=== PATIENT | male | born 1995 | race African-American/Black ===

== ENCOUNTER 2019-07-05 01:38 | Emergency (ER) | payer OTHER ==
[2019-07-05] MEDS ORDERED: diphenhydrAMINE INJ 50 MG/ML VIAL IVP STA (02:18)
[2019-07-05] MEDS ORDERED: FAMOTIDINE 20 MG/2 ML VIAL IVP STA (02:18)
[2019-07-05] MEDS ORDERED: methylPREDNISolone SUCCINATE 125 MG/2 ML VIAL IVP STA (02:18)
--- NOTE | 2019-07-05 02:19 | ED Physician Documentation ---
History of Present Illness - Stated complaint Stated Complaint: LIP SWELLING - Chief complaint Chief Complaint: Allergic Rx - History obtained from History obtained from: Patient - History of Present Illness Timing: Today - Additonal information Additional information: This is a 24-year-old who awakened approximately an hour and a half prior to presentation with his bottom lip swelling. He gone to bed about 830. He does not have any difficulty breathing or shortness of breath does not have any difficulty swallowing. He ate seafood 2 nights ago and his mom is allergic to seafood but he is never had a reaction like this in the past. Denies any nausea or vomiting. Review of Systems Constitutional: denies: Fever Throat: denies: Sore throat, Swollen tonsils Respiratory: denies: Dyspnea, Cough GI: denies: Nausea, Vomiting Skin: denies: Rash PD PAST MEDICAL HISTORY - Present Medications Home Medications: Ambulatory Orders Medication Instructions Recorded Confirmed predniSONE [Prednisone] 60 mg PO DAILY #15 tablet 07/05/19 - Allergies Allergies/Adverse Reactions: Allergies Allergy/AdvReac Type Severity Reaction Status Date / Time No Known Drug Allergies Allergy Verified 07/05/19 01:53 PD ED PE NORMAL - Vitals Vital signs reviewed: Yes - General General: Alert and oriented X 3, No acute distress, Well developed/nourished - HEENT HEENT: Atraumatic, PERRL, Moist mucous membranes, Pharynx benign, Other (The lower and bottom lip are visibly edematous. No edema of the tongue or soft palate.) - Neck Neck: No adenopathy, Thyroid normal - Cardiac Cardiac: RRR, No murmur - Respiratory Respiratory: No respiratory distress, Clear bilaterally - Derm Derm: Normal color, Warm and dry, No rash Results - Vitals Vitals: Vital Signs - 24 hr 07/05/19 07/05/19 07/05/19 01:50 03:27 05:26 Temperature 36.3 C L Heart Rate 75 72 67 Respiratory 16 15 Rate Blood Pressure 148/82 H 120/71 104/66 O2 Saturation 96 98 96 Oxygen O2 Source Room air PD MEDICAL DECISION MAKING - ED course Complexity details: re-evaluated patient, d/w patient ED course: IV was established and the patient was given Benadryl 50 mg Solu-Medrol 125 mg and Pepcid 20 mg. He was monitored here in the emergency department with frequent checks and the lip edema was not progressing but there was also not significant regression after a couple of hours. Organ to monitor him for another couple of hours and decide from there best treatment plan. 0636: Patient was monitored here for over 4 hours and had no further swelling. Lungs were clear and he was not in any respiratory distress. Plan to discharge home on 5 days of oral prednisone. He is instructed to use Benadryl today through the day every 6 hours. We discussed that there could be a genetic component to what happened to him rather than it being an actual allergic reaction. [place]. Departure - Departure Disposition: Home, Self Care Clinical Impression: Angioedema of lips Qualifiers: Encounter type: initial encounter Qualified Code(s): T78.3XXA - Angioneurotic edema, initial encounter Condition: Good Instructions: ED Angioedema Follow-Up: [facility] [Provider Group] Prescriptions: predniSONE [Prednisone] 60 mg PO DAILY #15 tablet Comments: Take Benadryl 50 mg every 6 hours of the day today if possible. Take prednisone as prescribed for 5 days. [place] whether there may be a genetic component to what happened to you tonight. Return to the emergency department if you have increasing swelling, difficulty speaking swallowing or breathing or other problems arise.
[2019-07-05 06:48] VITALS: BP 112/76
== END 2019-07-05 07:00 | disposition home or self-care (01) ==
LOC: ED 01:38
DX: T78.3XXA Angioneurotic edema, initial encounter (principal)
CPT/HCPCS: 96374; 96375; 99283; 99284; J1200

== ENCOUNTER 2019-08-04 19:35 | Emergency (ER) | payer OTHER ==
[2019-08-04] MEDS ORDERED: diphenhydrAMINE 25 MG CAPSULE PO STA (20:13)
[2019-08-04] MEDS ORDERED: predniSONE 20 MG TABLET PO STA (20:13)
--- NOTE | 2019-08-04 20:53 | ED Physician Documentation ---
History of Present Illness - Stated complaint Stated Complaint: LIP SWELLING, TROUBLE SWALLOWING - Chief complaint Chief Complaint: Allergic Rx - History obtained from History obtained from: Patient - History of Present Illness Timing: Today, How many hours ago (1.5) Pain level now: 0 - Additonal information Additional information: 24-year-old male with swelling to the upper lip started after eating chicken today. Has not taken anything prior to arrival. This is happened no before. Has not had allergy testing. No medications at home. Nothing makes it better or worse. No difficulty breathing or swallowing. Review of Systems Constitutional: denies: Fever, Chills Throat: denies: Sore throat Respiratory: denies: Dyspnea, Cough GI: denies: Vomiting Skin: denies: Rash PD PAST MEDICAL HISTORY - Past Medical History Past Medical History: No - Past Surgical History Past Surgical History: No - Present Medications Home Medications: Ambulatory Orders Medication Instructions Recorded Confirmed predniSONE [Prednisone] 60 mg PO DAILY #15 tablet 07/05/19 predniSONE [Prednisone] 40 mg PO DAILY #6 tablet 08/04/19 - Allergies Allergies/Adverse Reactions: Allergies Allergy/AdvReac Type Severity Reaction Status Date / Time No Known Drug Allergies Allergy Verified 08/04/19 19:43 - Social History Does the pt smoke?: No Smoking Status: Never smoker Does the pt drink ETOH?: No - Immunizations Immunizations are current?: Yes PD ED PE NORMAL - Vitals Vital signs reviewed: Yes - General General: Alert and oriented X 3, No acute distress - HEENT HEENT: Moist mucous membranes, Other (Mild swelling to the upper lip. Normal oropharyngeal exam. No stridor.) - Neck Neck: Supple, no meningeal sign - Cardiac Cardiac: RRR - Respiratory Respiratory: No respiratory distress, Clear bilaterally - Derm Derm: Warm and dry, No rash - Neuro Neuro: Alert and oriented X 3 Results - Vitals Vitals: Oxygen O2 Source Room air PD MEDICAL DECISION MAKING - ED course Complexity details: considered differential, d/w patient ED course: 24-year-old male with mild swelling to the upper lip. Appears to be an allergic reaction. Unclear what he is allergic to. Will place on steroids here and for home. Patient improved while being observed in the emergency department. Patient counseled regarding signs and symptoms for which I believe and urgent re-evaluation would be necessary. Patient with good understanding of and agreement to plan and is comfortable going home at this time This document was made in part using voice recognition software. While efforts are made to proofread this document, sound alike and grammatical errors may occur. Departure - Departure Disposition: 01 Home, Self Care Clinical Impression: Angioedema Qualifiers: Encounter type: initial encounter Qualified Code(s): T78.3XXA - Angioneurotic edema, initial encounter Condition: Good Instructions: ED Angioedema Follow-Up: your,doctor in 1 week [Other] Prescriptions: predniSONE [Prednisone] 40 mg PO DAILY #6 tablet Comments: Take all steroids until gone. Return if you worsen. Follow-up with your doctor for further care. Your doctor may want to have you visit an vpk teacher for allergy testing. Discharge Date/Time: 08/04/19 21:03
[2019-08-04 21:03] VITALS: BP 133/78
== END 2019-08-04 21:03 | disposition home or self-care (01) ==
LOC: ED 19:35
DX: T78.3XXA Angioneurotic edema, initial encounter (principal)
CPT/HCPCS: 99282; 99283; A9270; J7512

== ENCOUNTER 2020-06-14 18:31 | Outpatient (CLI) | payer OTHER | END 2020-06-14 18:32 | disposition critical access hospital (66) | LOC: EMS 18:31 | PROVIDERS: ATTEND Surgery | DX: R10.31 Right lower quadrant pain (principal); R11.0 Nausea | CPT/HCPCS: A0425; A0427 ==

== ENCOUNTER 2020-06-14 18:52 | Emergency (ER) | payer OTHER ==
[2020-06-14] MEDS ORDERED: KETOROLAC 30 MG/ML VIAL IVP STA (19:02)
[2020-06-14] MEDS ORDERED: LIDOCAINE-MPF 2% 7.5 ML in SODIUM CHLORIDE 0.9% 50 ML IV STA (19:04)
[2020-06-14] MEDS ORDERED: SODIUM CHLORIDE 0.9% 1,000 ML IV STA (19:04)
--- NOTE | 2020-06-14 19:06 | ED Physician Documentation ---
PD HPI ABD PAIN - Stated complaint Stated Complaint: RT FLANK ABD PAIN - Chief complaint Chief Complaint: Abd Pain - History obtained from History obtained from: Patient - History of Present Illness Timing - onset: How many hours ago (1) Timing - duration: Hours (1) Timing - details: Abrupt onset Pain level max: 10 Pain level now: 10 Quality: Pain Location: RLQ Radiation: Right flank Improved by: Meds (fentanyl with EMS) Worsened by: Other (nothing) Associated symptoms: Nausea. 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 Nothing makes it better or worse. Does have a history of kidney stones, last was approximately 7 years ago. Review of Systems Ten Systems: 10 systems reviewed and negative Constitutional: denies: Fever, Chills Respiratory: denies: Cough GI: reports: Nausea. denies: Vomiting, Diarrhea : denies: Dysuria, Frequency, Hesitancy Skin: denies: Rash Musculoskeletal: denies: Neck pain, Back pain Neurologic: denies: Headache PD PAST MEDICAL HISTORY - Past Medical History Past Medical History: Yes : Kidney stones - Past Surgical History Past Surgical History: No - Present Medications Home Medications: Ambulatory Orders Medication Instructions Recorded Confirmed predniSONE [Prednisone] 60 mg PO DAILY #15 tablet 07/05/19 predniSONE [Prednisone] 40 mg PO DAILY #6 tablet 08/04/19 HYDROcod/ACETAM 5/325 [[facility] 5/325] 1 - 2 ea PO Q6H PRN #10 tablet 06/14/20 Ibuprofen [Motrin] 800 mg PO Q8H PRN #30 tablet 06/14/20 Ondansetron Odt [Zofran] 4 mg TL Q6H PRN #10 tablet 06/14/20 - Allergies Allergies/Adverse Reactions: Allergies Allergy/AdvReac Type Severity Reaction Status Date / Time No Known Drug Allergies Allergy Verified 06/14/20 18:57 - Social History Does the pt smoke?: No Smoking Status: Never smoker Does the pt drink ETOH?: No - Immunizations Immunizations are current?: Yes PD ED PE NORMAL - Vitals Vital signs reviewed: Yes - General General: Alert and oriented X 3, Well developed/nourished, Other (appears in pain) - HEENT HEENT: Moist mucous membranes - Neck Neck: Supple, no meningeal sign - Cardiac Cardiac: RRR - Respiratory Respiratory: No respiratory distress, Clear bilaterally - Abdomen Abdomen: Soft, Non tender, Non distended - Derm Derm: Warm and dry - Extremities Extremities: No calf tenderness / cord - Neuro Neuro: Alert and oriented X 3 Results - Vitals Vitals: Vital Signs - 24 hr 06/14/20 06/14/20 06/14/20 18:56 19:58 21:41 Temperature 36.9 C Heart Rate 102 H 75 99 Respiratory 12 18 18 Rate Blood Pressure 150/77 H 150/79 H 131/79 H O2 Saturation 97 100 98 Oxygen O2 Source Room air - Labs Labs: Laboratory Tests 06/14/20 06/14/20 06/14/20 19:10 19:10 21:23 WBC 7.8 RBC 5.35 Hgb 14.3 Hct 43.2 MCV 80.7 MCH 26.7 L MCHC 33.1 RDW 11.8 L Plt Count 338 MPV 10.1 Neut # (Auto) 2.9 Lymph # (Auto) 3.8 H [place] # (Auto) 0.8 Eos # (Auto) 0.2 Baso # (Auto) 0.0 Absolute Nucleated RBC 0.00 Nucleated RBC % 0.0 Sodium 135 Potassium 3.2 L Chloride 99 L Carbon Dioxide 27 Anion Gap 9.0 BUN 10 Creatinine 1.1 Estimated GFR (MDRD) 101 Glucose 113 H Calcium 8.8 Total Bilirubin 0.4 AST 22 ALT 25 Alkaline Phosphatase 92 Total Protein 7.6 Albumin 4.5 Globulin 3.1 Albumin/Globulin Ratio 1.5 Lipase 32 Urine Color YELLOW Urine Clarity HAZY Urine pH 6.5 Ur Specific [place] 1.025 Urine Protein NEGATIVE Urine Glucose (UA) NEGATIVE Urine Ketones NEGATIVE Urine Occult Blood LARGE H Urine Nitrite NEGATIVE Urine Bilirubin NEGATIVE Urine Urobilinogen 0.2 (NORMAL) Ur Leukocyte Esterase NEGATIVE Urine RBC 11-25 H Urine WBC 0-3 Ur Squamous Epith Cells NONE SEEN Urine Bacteria None Seen Ur Microscopic Review INDICATED Urine Culture Comments NOT INDICATED - Rads (name of study) CT abd/pelvis Radiology: Prelim report reviewed, EMP read contemporaneously PD MEDICAL DECISION MAKING - ED course Complexity details: reviewed results, re-evaluated patient, considered differential, d/w patient ED course: Patient with a right UVJ stone, it is in the bladder on CT scan. Pain resolved in the emergency department. Patient is well-appearing, nontoxic. Afebrile. Given Toradol, IV lidocaine and Dilaudid. No evidence of UTI. No fevers. No evidence of sepsis. Will prescribe pain meds and nausea meds for home. Patient counseled regarding signs and symptoms for which I believe and urgent re-yamilex luation would be necessary. Patient with good understanding of and agreement to plan and is comfortable going home at this time This document was made in part using voice recognition software. While efforts are made to proofread this document, sound alike and grammatical errors may occur. CT abd/pelvis: 1. Obstructing urinary stone in the bladder at the UVJ with associated mild right hydroureteronephrosis. 2. Additional small bilateral nonobstructing stones as described. Departure - Departure Disposition: Home, Self Care Clinical Impression: Renal stone Condition: Good Instructions: ED Stone Renal Passed Follow-Up: your,doctor in 1 week [Other] Prescriptions: Ibuprofen [Motrin] 800 mg PO Q8H PRN #30 tablet PRN Reason: PAIN &/OR FEVER HYDROcod/ACETAM 5/325 [[facility] 5/325] 1 - 2 ea PO Q6H PRN #10 tablet PRN Reason: Pain Ondansetron Odt [Zofran] 4 mg TL Q6H PRN #10 tablet PRN Reason: Nausea / Vomiting Comments: You have a 4 mm right kidney stone tonight, this appears to be passing into your bladder during your CAT scan. Return if you worsen. Drink plenty of fluids and stay well-hydrated.
[2020-06-14 19:20] LABS: BASOPHILS % (AUTO) 0.5 %; EOSINOPHILS # (AUTO) 0.2 10^3/uL (0.0-0.7); EOSINOPHILS % (AUTO) 2.7 %; HGB - HEMOGLOBIN 14.3 g/dL (14.0-18.0); LYMPHOCYTES # (AUTO) 3.8 10^3/uL (1.5-3.5); LYMPHOCYTES % (AUTO) 49.4 %; MEAN CORPUSCULAR HEMOGLOBIN 26.7 pg (27.0-31.0); MEAN CORPUSCULAR HGB CONC 33.1 g/dL (32.0-36.0); MEAN CORPUSCULAR VOLUME 80.7 fL (80.0-94.0); MEAN PLATELET VOLUME 10.1 fL (7.4-11.4); MONOCYTES # (AUTO) 0.8 10^3/uL (0.0-1.0); MONOCYTES % (AUTO) 9.7 %; NEUTROPHILS # (AUTO) 2.9 10^3/uL (1.5-6.6); NEUTROPHILS % (AUTO) 37.3 %; PLT - PLATELET COUNT 338 10^3/uL (130-450); RED BLOOD COUNT 5.35 10^6/uL (4.70-6.10); RED CELL DISTRIBUTION WIDTH 11.8 % (12.0-15.0); WHITE BLOOD COUNT 7.8 x10^3/uL (4.8-10.8)
[2020-06-14] MEDS ORDERED: LIDOCAINE-MPF 2% 5 ML VIAL ONE (19:23)
[2020-06-14 19:26] LABS: ALBUMIN 4.5 g/dL (3.2-5.5); ALBUMIN/GLOBULIN RATIO 1.5 (1.0-2.2); BILIRUBIN,TOTAL 0.4 mg/dL (0.2-1.0); CALCIUM 8.8 mg/dL (8.5-10.3); CREATININE 1.1 mg/dL (0.6-1.2); TOTAL PROTEIN 7.6 g/dL (6.7-8.2)
[2020-06-14] MEDS ORDERED: HYDROmorphone 1 MG/ML CARPUJECT IVP STA (19:44)
--- NOTE | 2020-06-14 19:47 | CT Report ---
PROCEDURE: Abdomen/Pelvis WO INDICATIONS: R flank pain, h/o renal stones. TECHNIQUE: Noncontrast 5 mm thick sections acquired from the diaphragms to the symphysis. 5 mm coronal and sagi ttal reformats were then performed. For radiation dose reduction, the following was used: automated exposure control, adjustment of mA and/or kV according to patient size. COMPARISON: None. FINDINGS: Image quality: Excellent. ABDOMEN: Lung bases: There is mild dependent atelectasis bilaterally. Heart size is normal. Solid organs: Noncontrast evaluation of the liver demonstrates no focal hepatic lesions. Gallbladder appears within normal limits without calcified gallstones. Spleen is normal in size. Pancreas is norm al in contours. No adrenal nodules. There is an obstructing stone measuring up to 4 mm in the urinary bladder at the ureterovesicular luis ction with associated mild right hydroureteronephrosis. There is associated mild perinephric and matty renal fat stranding. There are 3 additional small nonobstructing right renal stones, measuring up to 3 mm and 2 small nonobstructing left renal stones measuring up to 2 mm. No left hydronephrosis. Left ureter is nondistended. Peritoneum and bowel: Unenhanced bowel loops demonstrate normal wall thickness and caliber. The appe ndix is normal in appearance. No free fluid or air. Nodes and vessels: No retroperitoneal or mesenteric adenopathy by size criteria. Aorta and inferior vena cava are normal in caliber. Miscellaneous: No ventral hernias. PELVIS: Genitourinary: Bladder wall thickness is normal. Miscellaneous: No inguinal hernias or adenopathy. Bones: No suspicious bony lesions. No vertebral body compression fractures. IMPRESSION: 1. Obstructing urinary stone in the bladder at the UVJ with associated mild right hydroureteronephros is. 2. Additional small bilateral nonobstructing stones as described. Reviewed by: Ja Ramirez MD on 06/14/2020 7:46 PM PDT Approved by: Ja Ramirez MD on 06/14/2020 7:46 PM PDT Station ID: [id number]
[2020-06-14 21:31] LABS: BILIRUBIN,URINE NEGATIVE (NEGATIVE); CLARITY,URINE HAZY (CLEAR); GLUCOSE, URINE (UA) NEGATIVE (NEGATIVE); KETONES,URINE (UA) NEGATIVE (NEGATIVE); LEUKOCYTE ESTERASE, URINE NEGATIVE (NEGATIVE); NITRITE,URINE NEGATIVE (NEGATIVE); OCCULT BLOOD,URINE LARGE (NEGATIVE); PH,URINE 6.5 PH (5.0-7.5); PROTEIN,URINE NEGATIVE (NEGATIVE); UROBILINOGEN,URINE 0.2 (NORMAL) E.U./dL (NORMAL)
[2020-06-14 21:40] LABS: BACTERIA,URINE None Seen /HPF (None Seen); SQUAMOUS EPITHELIAL CELL,UR NONE SEEN (<= Few)
[2020-06-14 21:42] VITALS: BP 131/79
[2020-06-14] MEDS ORDERED: ONDANSETRON ODT 4 MG TABLET TL STA (21:59)
== END 2020-06-14 22:30 | disposition home or self-care (01) ==
LOC: EDUNIT# → ED 18:52
DX: N13.2 Hydronephrosis with renal and ureteral calculous obstruction (principal)
CPT/HCPCS: 36415; 74176; 80053; 81001; 83690; 85025; 96361; 96374; 96375; 99284; J1170; J7040; Q0162; 81003; 87086

== ENCOUNTER 2020-07-03 01:22 | Outpatient (CLI) | payer OTHER | END 2020-07-03 01:23 | disposition critical access hospital (66) | LOC: EMS 01:22 | PROVIDERS: ATTEND Surgery | DX: R55 Syncope and collapse (principal); R07.9 Chest pain, unspecified; R00.0 Tachycardia, unspecified | CPT/HCPCS: A0425; A0427 ==

== ENCOUNTER 2020-07-03 01:42 | Emergency (ER) | payer OTHER ==
[2020-07-03 02:11] LABS: BASOPHILS % (AUTO) 0.3 %; EOSINOPHILS % (AUTO) 0.7 %; LYMPHOCYTES # (AUTO) 1.9 10^3/uL (1.5-3.5); LYMPHOCYTES % (AUTO) 32.3 %; MEAN CORPUSCULAR HEMOGLOBIN 26.5 pg (27.0-31.0); MEAN CORPUSCULAR HGB CONC 32.3 g/dL (32.0-36.0); MONOCYTES # (AUTO) 0.4 10^3/uL (0.0-1.0); MONOCYTES % (AUTO) 7.2 %; NEUTROPHILS # (AUTO) 3.4 10^3/uL (1.5-6.6); NEUTROPHILS % (AUTO) 59.3 %; PLT - PLATELET COUNT 282 10^3/uL (130-450); RED BLOOD COUNT 5.28 10^6/uL (4.70-6.10); RED CELL DISTRIBUTION WIDTH 11.9 % (12.0-15.0); WHITE BLOOD COUNT 5.7 x10^3/uL (4.8-10.8)
[2020-07-03 02:25] LABS: ALBUMIN 4.5 g/dL (3.2-5.5); ALBUMIN/GLOBULIN RATIO 1.5 (1.0-2.2); BILIRUBIN,TOTAL 0.8 mg/dL (0.2-1.0); CALCIUM 9.4 mg/dL (8.5-10.3); CREATININE 1.1 mg/dL (0.6-1.2); TOTAL PROTEIN 7.6 g/dL (6.7-8.2)
--- NOTE | 2020-07-03 03:00 | ED Physician Documentation ---
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 No: Headache, Vision changes, Chest pain, Diaphoresis, Nausea / vomiting, Abdominal pain Contributing factors: None Injury occurred: None Recently seen: Not recently seen - Additional information Additional information: patient was at work, at rest sitting at a desk tonight when he had sudden onset rapid palpitations and lightheadedness. He says he had odd sensation in BUE which he can best describe as his arms feeling "light" (per patient). Review of Systems Cardiac: reports: Palpitations. denies: Chest pain / pressure, Pedal edema, Calf pain Respiratory: reports: Reviewed and negative GI: reports: Reviewed and negative Neurologic: denies: Generalized weakness, Focal weakness, Numbness, Syncope, Headache PD PAST MEDICAL HISTORY - Past Medical History Cardiovascular: None Respiratory: None Neuro: None Endocrine/Autoimmune: None GI: None : Kidney stones HEENT: None Psych: None Musculoskeletal: None Derm: None - Past Surgical History Past Surgical History: No - Present Medications Home Medications: Ambulatory Orders Medication Instructions Recorded Confirmed predniSONE [Prednisone] 60 mg PO DAILY #15 tablet 07/05/19 predniSONE [Prednisone] 40 mg PO DAILY #6 tablet 08/04/19 HYDROcod/ACETAM 5/325 [[place] 5/325] 1 - 2 ea PO Q6H PRN #10 tablet 06/14/20 Ibuprofen [Motrin] 800 mg PO Q8H PRN #30 tablet 06/14/20 Ondansetron Odt [Zofran] 4 mg TL Q6H PRN #10 tablet 06/14/20 - Allergies Allergies/Adverse Reactions: Allergies Allergy/AdvReac Type Severity Reaction Status Date / Time No Known Drug Allergies Allergy Verified 07/03/20 01:55 - Social History Does the pt smoke?: No Smoking Status: Never smoker Does the pt drink ETOH?: No Does the pt have substance abuse?: No - Immunizations Immunizations are current?: Yes PD ED PE NORMAL - Vitals Vital signs reviewed: Yes - General General: Alert and oriented X 3, No acute distress, Well developed/nourished - HEENT HEENT: Moist mucous membranes - Neck Neck: Supple, no meningeal sign - Cardiac Cardiac: RRR, No murmur, No gallop, No rub - Respiratory Respiratory: No respiratory distress, Clear bilaterally - Abdomen Abdomen: Soft, Non tender - Extremities Extremities: No edema Results - Vitals Vitals: Vital Signs - 24 hr 07/03/20 07/03/20 07/03/20 01:49 02:07 03:19 Temperature 36.9 C Heart Rate 88 90 88 Respiratory 16 20 18 Rate Blood Pressure 143/80 H 147/86 H 138/74 H O2 Saturation 97 98 97 07/03/20 03:40 Temperature Heart Rate 81 Respiratory 16 Rate Blood Pressure 135/78 H O2 Saturation 97 Oxygen O2 Source Room air - EKG (time done) No standard instances Rate: Rate (enter#) (88) Rhythm: NSR [place]: Normal Intervals: Normal NC QRS: Normal Ischemia: Normal ST segments Other comments: Other comments (rSR' V1, V2) - Labs Labs: Laboratory Tests 07/03/20 07/03/20 07/03/20 02:05 02:05 02:05 WBC 5.7 RBC 5.28 Hgb 14.0 Hct 43.3 MCV 82.0 MCH 26.5 L MCHC 32.3 RDW 11.9 L Plt Count 282 MPV 10.0 Neut # (Auto) 3.4 Lymph # (Auto) 1.9 [place] # (Auto) 0.4 Eos # (Auto) 0.0 Baso # (Auto) 0.0 Absolute Nucleated RBC 0.00 Nucleated RBC % 0.0 Sodium 137 Potassium 3.4 L Chloride 100 L Carbon Dioxide 26 Anion Gap 11.0 BUN 12 Creatinine 1.1 Estimated GFR (MDRD) 101 Glucose 93 Calcium 9.4 Total Bilirubin 0.8 AST 19 ALT 26 Alkaline Phosphatase 88 Troponin I High Sens 6.3 Total Protein 7.6 Albumin 4.5 Globulin 3.1 Albumin/Globulin Ratio 1.5 Lipase 26 PD MEDICAL DECISION MAKING - ED course Complexity details: reviewed results, re-evaluated patient, considered differential, d/w patient ED course: normal vital signs and NSR on monitor during ED stay. Unremarkable blood tests (minimally low potassium at 3.4) and nondiagnostic EKG. Departure - Departure Disposition: 01 Home, Self Care Clinical Impression: Near syncope Condition: Good Instructions: ED Near Syncope Unkn Follow-Up: CE[facility] Leon [Provider Group] - Within 3 Days Discharge Date/Time: 07/03/20 03:40
[2020-07-03 03:41] VITALS: BP 135/78
== END 2020-07-03 03:40 | disposition home or self-care (01) ==
LOC: EDUNIT# → ED 01:42
DX: R55 Syncope and collapse (principal)
CPT/HCPCS: 36415; 80053; 83690; 84484; 85025; 93005; 99284

== ENCOUNTER 2020-09-03 06:48 | Emergency (ER) | payer OTHER ==
[2020-09-03 07:27] LABS: BASOPHILS % (AUTO) 0.7 %; EOSINOPHILS # (AUTO) 0.1 10^3/uL (0.0-0.7); EOSINOPHILS % (AUTO) 1.4 %; HGB - HEMOGLOBIN 13.9 g/dL (14.0-18.0); LYMPHOCYTES # (AUTO) 1.5 10^3/uL (1.5-3.5); LYMPHOCYTES % (AUTO) 34.5 %; MEAN CORPUSCULAR HEMOGLOBIN 26.3 pg (27.0-31.0); MEAN CORPUSCULAR HGB CONC 32.3 g/dL (32.0-36.0); MEAN CORPUSCULAR VOLUME 81.3 fL (80.0-94.0); MONOCYTES # (AUTO) 0.4 10^3/uL (0.0-1.0); MONOCYTES % (AUTO) 7.9 %; NEUTROPHILS # (AUTO) 2.5 10^3/uL (1.5-6.6); NEUTROPHILS % (AUTO) 55.3 %; PLT - PLATELET COUNT 280 10^3/uL (130-450); RED BLOOD COUNT 5.29 10^6/uL (4.70-6.10); RED CELL DISTRIBUTION WIDTH 12.1 % (12.0-15.0); WHITE BLOOD COUNT 4.4 x10^3/uL (4.8-10.8)
[2020-09-03 07:31] LABS: CALCIUM 9.3 mg/dL (8.5-10.3); MAGNESIUM 2.2 mg/dL (1.7-2.8)
--- NOTE | 2020-09-03 08:21 | XRAY Report ---
PROCEDURE: Chest 1 View X-Ray INDICATIONS: chest pain, palpitations TECHNIQUE: One view of the chest was acquired. COMPARISON: None FINDINGS: Surgical changes and devices: None. Lungs and pleura: No pleural effusions or pneumothorax. Lungs are clear. Mediastinum: Mediastinal contours appear normal. Heart size is normal. Bones and chest wall: No suspicious bony lesions. Overlying soft tissues appear unremarkable. IMPRESSION: Normal for age, source of current symptoms is not seen. Reviewed by: Igor Blood MD on 09/03/2020 8:20 AM [facility] Approved by: Igor Blood MD on 09/03/2020 8:20 AM [facility] Station ID: [id number]
--- NOTE | 2020-09-03 09:24 | ED Physician Documentation ---
PD HPI CHEST PAIN - Stated complaint Stated Complaint: CHEST PX - Chief complaint Chief Complaint: Cardiac - History obtained from History obtained from: Patient - Additional information Additional information: 25-year-old male, with past medical history of gastroesophageal reflux presents with chest pain starting this morning sudden onset associated with palpitations, intermittent, aching, substernal nonradiating. No exacerbating or relieving features. Patient denies fever nausea abdominal pain back pain urinary symptoms shortness of breath or cough. No myalgias. Does endorse mild bifrontal nonradiating aching headache. Review of Systems Ten Systems: 10 systems reviewed and negative Constitutional: denies: Fever, Chills, Myalgias Cardiac: reports: Chest pain / pressure, Palpitations Respiratory: denies: Dyspnea, Cough GI: denies: Abdominal Pain, Nausea PD PAST MEDICAL HISTORY - Past Medical History Past Medical History: No Cardiovascular: None Respiratory: None Neuro: None Endocrine/Autoimmune: None GI: None : Kidney stones HEENT: None Psych: None Musculoskeletal: None Derm: None - Past Surgical History Past Surgical History: No - Present Medications Home Medications: Ambulatory Orders Medication Instructions Recorded Confirmed predniSONE [Prednisone] 60 mg PO DAILY #15 tablet 07/05/19 predniSONE [Prednisone] 40 mg PO DAILY #6 tablet 08/04/19 HYDROcod/ACETAM 5/325 [[place] 5/325] 1 - 2 ea PO Q6H PRN #10 tablet 06/14/20 Ibuprofen [Motrin] 800 mg PO Q8H PRN #30 tablet 06/14/20 Ondansetron Odt [Zofran] 4 mg TL Q6H PRN #10 tablet 06/14/20 - Allergies Allergies/Adverse Reactions: Allergies Allergy/AdvReac Type Severity Reaction Status Date / Time No Known Drug Allergies Allergy Verified 07/03/20 01:55 - Social History Does the pt smoke?: No Smoking Status: Never smoker Does the pt drink ETOH?: No Does the pt have substance abuse?: No - Immunizations Immunizations are current?: Yes PD ED PE NORMAL - Vitals Vital signs reviewed: Yes - General General: Alert and oriented X 3 - HEENT HEENT: Atraumatic, PERRL, EOMI - Neck Neck: Supple, no meningeal sign, No JVD - Cardiac Cardiac: RRR - Respiratory Respiratory: No respiratory distress, Clear bilaterally - Abdomen Abdomen: Non tender, Non distended - Male Male : Deferred - Rectal Rectal: Deferred - Back Back: No CVA TTP - Derm Derm: Normal color - Extremities Extremities: No deformity, No edema - Neuro Neuro: Alert and oriented X 3 - Psych Psych: Normal mood, Normal affect Results - Vitals Vitals: Vital Signs - 24 hr 09/03/20 09/03/20 06:54 08:30 Temperature 37.1 C Heart Rate 106 H 82 Respiratory 18 16 Rate Blood Pressure 155/93 H 127/90 H O2 Saturation 98 97 Oxygen O2 Source Room air - Labs Labs: Laboratory Tests 09/03/20 09/03/20 09/03/20 07:14 07:14 07:14 WBC 4.4 L RBC 5.29 Hgb 13.9 L Hct 43.0 MCV 81.3 MCH 26.3 L MCHC 32.3 RDW 12.1 Plt Count 280 MPV 10.0 Neut # (Auto) 2.5 Lymph # (Auto) 1.5 Kerr # (Auto) 0.4 Eos # (Auto) 0.1 Baso # (Auto) 0.0 Absolute Nucleated RBC 0.00 Nucleated RBC % 0.0 D-Dimer Sodium 138 Potassium 3.4 L Chloride 103 Carbon Dioxide 27 Anion Gap 8.0 BUN 12 Creatinine 1.0 Estimated GFR (MDRD) 112 Glucose 117 H Calcium 9.3 Magnesium 2.2 Troponin I High Sens 7.7 09/03/20 07:14 WBC RBC Hgb Hct MCV MCH MCHC RDW Plt Count MPV Neut # (Auto) Lymph # (Auto) Kerr # (Auto) Eos # (Auto) Baso # (Auto) Absolute Nucleated RBC Nucleated RBC % D-Dimer 224.3 Sodium Potassium Chloride Carbon Dioxide Anion Gap BUN Creatinine Estimated GFR (MDRD) Glucose Calcium Magnesium Troponin I High Sens PD MEDICAL DECISION MAKING - ED course Complexity details: reviewed results, d/w patient ED course: 25-year-old man, previously healthy non-smoker presents with atypical chest pain. Found to have normal D-dimer and normal troponin in the ED. Low risk for PE. Heart score 0. Patient seen by social work with recommendation for mental health resources upon his request. Plan to follow-up with [facility]. He does have a stress test scheduled. He also can follow-up with [facility] as needed. Departure - Departure Disposition: 01 Home, Self Care Clinical Impression: Chest pain, Insomnia Condition: Good Instructions: ED Chest Pain NonCardiac Comments: You have been seen in the emergency department for chest pain. It does not appear that you have a cardiac cause for your chest pain at this time. Your EKG, blood work, and chest x-ray were normal. We tested a troponin for your heart and a D-dimer for blood clot evaluation and those were normal. You should follow-up with [facility]. Try to get lots of rest, sleep 8 hours in a 24- hour., Eat healthy and exercise. Return to the ED for any new or worsening symptoms or other concerns.
[2020-09-03 09:28] VITALS: BP 129/82
== END 2020-09-03 09:35 | disposition home or self-care (01) ==
LOC: ED 06:48
DX: R07.9 Chest pain, unspecified (principal); G47.00 Insomnia, unspecified
CPT/HCPCS: 36415; 71045; 80048; 83735; 84484; 85025; 85379; 93005; 99284

== ENCOUNTER 2020-09-11 22:57 | Emergency (ER) | payer OTHER ==
[2020-09-11] MEDS ORDERED: hydrOXYzine PAMOATE 25 MG CAPSULE PO STA (23:21)
[2020-09-11 23:43] VITALS: BP 125/76
--- NOTE | 2020-09-12 00:07 | ED Physician Documentation ---
PD HPI CHEST PAIN - Stated complaint Stated Complaint: CP - Chief complaint Chief Complaint: Cardiac - History obtained from History obtained from: Patient - Additional information Additional information: 25-year-old man with multiple prior visits for palpitations and chest pain presents with inability to sleep this evening due to persistent worries about his chest pain.Patient states that he followed up with [facility] after his last visit last week but that it is taking a while for his referrals to go through. Denies any new symptoms since prior work-up. Not experiencing any chest pain at present. Review of Systems Ten Systems: 10 systems reviewed and negative PD PAST MEDICAL HISTORY - Past Medical History Past Medical History: Yes Cardiovascular: None Respiratory: None Neuro: None Endocrine/Autoimmune: None GI: None : Kidney stones HEENT: None Psych: None Musculoskeletal: None Derm: None - Past Surgical History Past Surgical History: No - Present Medications Home Medications: Ambulatory Orders Medication Instructions Recorded Confirmed predniSONE [Prednisone] 60 mg PO DAILY #15 tablet 07/05/19 predniSONE [Prednisone] 40 mg PO DAILY #6 tablet 08/04/19 HYDROcod/ACETAM 5/325 [[place] 5/325] 1 - 2 ea PO Q6H PRN #10 tablet 06/14/20 Ibuprofen [Motrin] 800 mg PO Q8H PRN #30 tablet 06/14/20 Ondansetron Odt [Zofran] 4 mg TL Q6H PRN #10 tablet 06/14/20 hydrOXYzine pamoate [Hydroxyzine 25 mg PO Q6HR PRN 4 Days #24 09/11/20 Pamoate] capsule - Allergies Allergies/Adverse Reactions: Allergies Allergy/AdvReac Type Severity Reaction Status Date / Time No Known Drug Allergies Allergy Verified 09/11/20 23:12 - Social History Does the pt smoke?: No Smoking Status: Never smoker Does the pt drink ETOH?: No Does the pt have substance abuse?: No - Immunizations Immunizations are current?: Yes - POLST Patient has POLST: No PD ED PE NORMAL - Vitals Vital signs reviewed: Yes - General General: Alert and oriented X 3 - HEENT HEENT: Atraumatic, PERRL, EOMI - Neck Neck: Supple, no meningeal sign - Cardiac Cardiac: RRR - Respiratory Respiratory: No respiratory distress, Clear bilaterally - Abdomen Abdomen: Soft, Non tender, Non distended - Male Male : Deferred - Rectal Rectal: Deferred - Back Back: No CVA TTP - Derm Derm: Normal color, Warm and dry - Extremities Extremities: No deformity - Neuro Neuro: Alert and oriented X 3 - Psych Psych: Normal mood, Normal affect Results - Vitals Vitals: Vital Signs - 24 hr 09/11/20 09/11/20 09/11/20 23:05 23:13 23:27 Temperature 36.4 C L 36.4 C L 36.4 C L Heart Rate 82 82 82 Respiratory 18 18 18 Rate Blood Pressure 138/90 H 138/90 H 125/76 O2 Saturation 98 98 99 Oxygen O2 Source Room air Procedures - Bedside sono Bedside sono by EMP: [id number] bedside echocardiogram within normal limits. Parasternal long short A4 and subxiphoid within normal limits. No pericardial effusion. Grossly normal wall motion. PD MEDICAL DECISION MAKING - ED course Complexity details: reviewed results, d/w patient ED course: 25-year-old man with persistent worries about palpitations and chest pain, stating that he had extensive work-up in the past with heart monitor for a month in March. He is still awaiting results but has not been told that it was abnormal. His work-up in the emergency department last week was normal. Today his EKG is normal and his bedside echocardiogram was within normal limits. Advised patient to follow-up with [facility]. I did give him a short prescription for Atarax as a sleep aid/antianxiety medication since he says that he has been under a lot of stress at work and has been having trouble sleeping. Return precautions given. Departure - Departure Disposition: 01 Home, Self Care Clinical Impression: Insomnia, Heart palpitations Condition: Good Instructions: ED Chest Pain NonCardiac Prescriptions: hydrOXYzine pamoate [Hydroxyzine Pamoate] 25 mg PO Q6HR PRN 4 Days #24 capsule PRN Reason: Anxiety Comments: You have been seen in the emergency department for difficulty sleeping and heart palpitations/pain. Your EKG was normal. You can take atarax as needed for sleep aide/anxiety. Follow-up with [facility]. Discharge Date/Time: 09/11/20 23:42
== END 2020-09-11 23:42 | disposition home or self-care (01) ==
LOC: ED 22:57
DX: G47.00 Insomnia, unspecified (principal); R07.9 Chest pain, unspecified; R00.2 Palpitations
CPT/HCPCS: 93005; 99281; 99284; A9270

== ENCOUNTER 2020-11-28 23:45 | Emergency (ER) | payer OTHER ==
--- NOTE | 2020-11-29 00:17 | ED Physician Documentation ---
PD HPI CHEST PAIN - Stated complaint Stated Complaint: CHEST PX - Chief complaint Chief Complaint: Cardiac - History obtained from History obtained from: Patient - History of Present Illness Timing - onset: Today (about 5 pm, shortly after eating.) Timing - onset during: Rest. No: Exertion Timing - duration: Minutes Timing - details: Abrupt onset, Now resolved Quality: Aching, Sharp, Pain Location: Substernal, Right chest (upper sternal area) Radiation: No: Jaw, Neck, Back Improved by: No: Rest Worsened by: Palpation (somewhat tender at upper sternum area.). No: Inspiration, Movement Associated symptoms: Nausea, Feeling faint / dizzy. No: Shortness of air, General Weakness, Palpitations Similar symptoms before: No diagnosis (has had episodic similar symptoms since June. No diagnosis. Normal ECG with prior episodes (seen in ER Aug and Sep). Was referred to Surgical Coordinator and has had property assessment monitor for week. Scheduled for stress test with cardiology 12/06/20.) Review of Systems Constitutional: denies: Fever, Chills Nose: denies: Rhinorrhea / runny nose, Congestion Throat: denies: Sore throat Respiratory: denies: Cough GI: reports: Nausea. denies: Abdominal Pain, Vomiting, Diarrhea Skin: denies: Rash, Lesions PD PAST MEDICAL HISTORY - Past Medical History Cardiovascular: None Respiratory: None Neuro: None Endocrine/Autoimmune: None GI: None : Kidney stones HEENT: None Psych: None Musculoskeletal: None Derm: None - Past Surgical History Past Surgical History: No - Present Medications Home Medications: Ambulatory Orders Medication Instructions Recorded Confirmed predniSONE [Prednisone] 60 mg PO DAILY #15 tablet 07/05/19 predniSONE [Prednisone] 40 mg PO DAILY #6 tablet 08/04/19 HYDROcod/ACETAM 5/325 [[place] 5/325] 1 - 2 ea PO Q6H PRN #10 tablet 06/14/20 Ibuprofen [Motrin] 800 mg PO Q8H PRN #30 tablet 06/14/20 Ondansetron Odt [Zofran] 4 mg TL Q6H PRN #10 tablet 06/14/20 hydrOXYzine pamoate [Hydroxyzine 25 mg PO Q6HR PRN 4 Days #24 09/11/20 Pamoate] capsule Famotidine [Pepcid] 20 mg PO DAILY #20 tab 02/19/21 Lidocaine Viscous 2% [Xylocaine 5 ml PO Q4H PRN #100 ml 11/29/20 Viscous 2%] dexAMETHasone [Decadron] 4 mg PO DAILY #5 tab 11/29/20 - Allergies Allergies/Adverse Reactions: Allergies Allergy/AdvReac Type Severity Reaction Status Date / Time No Known Drug Allergies Allergy Verified 11/28/20 23:48 - Social History Does the pt smoke?: No Smoking Status: Never smoker Does the pt drink ETOH?: No Does the pt have substance abuse?: No - Immunizations Immunizations are current?: Yes - POLST Patient has POLST: No PD ED PE NORMAL - Vitals Vital signs reviewed: Yes - General General: Alert and oriented X 3, No acute distress, Well developed/nourished - HEENT HEENT: Pharynx benign - Neck Neck: Supple, no meningeal sign, No adenopathy - Cardiac Cardiac: RRR, No murmur - Respiratory Respiratory: Clear bilaterally, Other (some chestwall tenderness upper right sternal border cartilage. ) - Abdomen Abdomen: Soft, Non tender - Derm Derm: Normal color, Warm and dry - Extremities Extremities: No tenderness to palpate, Normal ROM s pain, No edema, No calf tenderness / cord Results - Vitals Vitals: Vital Signs - 24 hr 11/28/20 11/29/20 11/29/20 23:48 00:03 01:57 Temperature 36.5 C 36.5 C Heart Rate 80 80 70 Respiratory 16 16 14 Rate Blood Pressure 148/95 H 148/95 H 123/82 H O2 Saturation 98 98 94 Oxygen O2 Source Room air - EKG (time done) 23:52 Rate: Rate (enter#) (79) Rhythm: NSR [place]: Normal Intervals: Normal [place] QRS: Normal Ischemia: Normal ST segments. No: ST elevation c/w ischemia, ST depression Compare to prior EKG: Unchanged from prior EKG - Labs Labs: Laboratory Tests 11/29/20 11/29/20 11/29/20 00:46 00:46 00:46 ESR 4 Sodium 135 Potassium 3.4 L Chloride 102 Carbon Dioxide 24 Anion Gap 9.0 BUN 15 Creatinine 1.0 Estimated GFR (MDRD) 112 Glucose 126 H Calcium 9.0 Troponin I High Sens 3.6 C-Reactive Protein < 1.0 PD MEDICAL DECISION MAKING - ED course Complexity details: reviewed results, re-evaluated patient, considered differential (some comonents of costochondritis iwth sharp pain and parasternal tenderness. Did have some improvement with antacids, so consider reflux as well. ), d/w patient Departure - Departure Disposition: 01 Home, Self Care Clinical Impression: Chest pain Qualifiers: Chest pain type: unspecified Qualified Code(s): R07.9 - Chest pain, unspecified Condition: Stable Record reviewed to determine appropriate education?: Yes Instructions: ED Chest Pain Atypical Unkn Cause Follow-Up: [facility] [Provider Group] Prescriptions: dexAMETHasone [Decadron] 4 mg PO DAILY #5 tab Famotidine [Pepcid] 20 mg PO DAILY #20 tab Lidocaine Viscous 2% [Xylocaine Viscous 2%] 5 ml PO Q4H PRN #100 ml PRN Reason: Pain Comments: Your EKG and blood tests are normal. No signs of heart abnormality at this point. Continue with your exercise treadmill test as planned on the . At this point consider possibilities of reflux and esophageal pain though there is some element that seems like chest wall tenderness as well. Take famotidine acid reducing medicine twice daily for a few days and then once daily for the next few weeks. Decadron steroid anti-inflammatory daily for 5 days. Add antacids such as Maalox or Mylanta and you can use lidocaine with it if needed for heartburn or reflux feeling pains. Add Tylenol otherwise if needed for pain. Discharge Date/Time: 11/29/20 01:59
[2020-11-29] MEDS ORDERED: IBUPROFEN 600 MG TABLET PO STA (00:36)
[2020-11-29] MEDS ORDERED: MAG HYDROX/AL HYDROX/SIMETH 30 ML UDC PO STA (00:36)
[2020-11-29 01:24] LABS: BUN - BLOOD UREA NITROGEN 15 mg/dL (6-20); CARBON DIOXIDE - CO2 24 mmol/L (21-32); CHLORIDE 102 mmol/L (101-111); GLUCOSE 126 mg/dL (70-100)
[2020-11-29] MEDS ORDERED: FAMOTIDINE 20 MG TABLET PO STA (01:45)
[2020-11-29 01:59] VITALS: BP 123/82
[2020-11-29 03:15] LABS: CRP - C-REACTIVE PROTEIN < 1.0 mg/dL (0-1.0)
== END 2020-11-29 01:59 | disposition home or self-care (01) ==
LOC: ED 23:45
DX: R07.89 Other chest pain (principal); R11.0 Nausea
CPT/HCPCS: 80048; 84484; 85651; 86140; 93005; 99283; 99284; A9270; 36415